=== PATIENT | female | born 1990 | race American Indian/Alaskan Native ===

== ENCOUNTER 2020-05-18 01:55 | Emergency (ER) | payer SELFPAY ==
--- NOTE | 2020-05-18 02:47 | Emergency Department Report ---
ED Psych HPI - General Chief Complaint: Psych Stated Complaint: FB/IN VAGINA Time Seen by Provider: 05/18/20 02:28 Source: patient Mode of arrival: Ambulatory Limitations: Altered Mental Status - History of Present Illness Initial Comments: Patient is a 29-year-old female that presents emergency room with complaints of hallucinations and a tampon stuck in her vagina for 1 month. Patient denies abdominal pain. Patient denies vaginal pain. Patient states she is having auditory and visual hallucinations. Patient states she is been using drugs for the last 2 days. Patient states tonight somebody gave her a new drug called a bee. Patient states her hallucinations worsened. Patient states she is not sure how long hallucination been going on. Patient denies suicidal homicidal ideations. Patient denies fever and chills. Patient states that the tampon is been stuck in her vagina for a month and that she just forgot to take it out now she cannot reach it. Patient states that she has made multiple attempts to get it out. Patient states she is still on her period for 1 month. Patient denies pain. Patient denies discharge. Patient de nies foul odor from the vagina. MD Complaint: altered mental status -: Sudden Associated Psychiatric Symptoms: racing thoughts, auditory hallucinations, visual hallucinations History of same: No Quality: constant Improves With: none Worsens With: none Context: recent drug abuse, significant life stressor Associated Symptoms: other. denies: confusion, headache - Related Data Previous Rx's Medication Instructions Recorded Last Taken Type Ferrous Gluconate [Fergon 325 MG 325 mg PO TID #30 tablet 05/18/20 Unknown Rx tab] Allergies Allergy/AdvReac Type Severity Reaction Status Date / Time No Known Allergies Allergy Unverified 05/18/20 03:28 ED Review of Systems ROS: Stated complaint: FB/IN VAGINA Other details as noted in HPI Constitutional: denies: chills, fever Eyes: denies: eye pain, eye discharge, vision change ENT: denies: ear pain, throat pain Respiratory: denies: cough, shortness of breath, wheezing Cardiovascular: denies: chest pain, palpitations Endocrine: no symptoms reported Gastrointestinal: denies: abdominal pain, nausea, diarrhea Genitourinary: denies: urgency, dysuria, discharge Musculoskeletal: denies: back pain, joint swelling, arthralgia Skin: denies: rash, lesions Neurological: denies: headache, weakness, paresthesias Psychiatric: auditory hallucinations, visual hallucinations. denies: anxiety, depression Hematological/Lymphatic: denies: easy bleeding, easy bruising ED Past Medical Hx - Past Medical History Previous Medical History?: No Additional medical history: UNABLE TO ASSESS - Surgical History Past Surgical History?: No Additional Surgical History: UNABLE TO ASSESS - Family History Family history: no significant - Social History Smoking Status: Current Every Day Smoker Substance Use Type: Alcohol - Medications Home Medications: Home Medications Medication Instructions Recorded Confirmed Last Taken Type Ferrous Gluconate [Fergon 325 MG 325 mg PO TID #30 tablet 05/18/20 Unknown Rx tab] ED Physical Exam - General Limitations: No Limitations General appearance: alert, in no apparent distress - Head Head exam: Present: atraumatic, normocephalic - Eye Eye exam: Present: normal appearance - ENT ENT exam: Present: mucous membranes moist - Neck Neck exam: Present: normal inspection - Respiratory Respiratory exam: Present: normal lung sounds bilaterally. Absent: respiratory distress - Cardiovascular Cardiovascular Exam: Present: regular rate, normal rhythm. Absent: systolic murmur, diastolic murmur, rubs, gallop - GI/Abdominal GI/Abdominal exam: Present: soft, normal bowel sounds - External exam: Present: normal external exam Speculum exam: Present: normal speculum exam Bi-manual exam: Present: normal bi-manual exam, other (Pelvic exam done with nurse Barragan in the room at all times.) - Extremities Exam Extremities exam: Present: normal inspection - Back Exam Back exam: Present: normal inspection - Neurological Exam Neurological exam: Present: alert, oriented X3 - Psychiatric Psychiatric exam: Present: agitated - Expanded Psychiatric Exam Expanded Focused psych exam: Present: pressured speech, internal stimuli, delusional, paranoid, restlessness - Skin Skin exam: Present: warm, dry, intact, normal color. Absent: rash ED Course Vital Signs 05/18/20 05/18/20 02:10 10:18 Temperature 98 F 98.3 F Pulse Rate 76 Respiratory 18 16 Rate Blood Pressure 136/87 Blood Pressure 112/56 [Left] O2 Sat by Pulse 98 99 Oximetry - Reevaluation(s) Reevaluation #1: Initial evaluation done. Patient evaluated with a nurse trudy, Cordelia LAIRD. Patient will have a pelvic exam. Patient is agreed to a pelvic exam. 05/18/20 02:28 Reevaluation #2: During the pelvic exam, the patient repeatedly grabbed the speculum out of my hand and stated that we are trying to implant something in her body. Patient also stated that many of people have stopped transmitting it devices into her vagina and have done her wrong. Patient states that the devices are there to monitor her activities. Patient currently on her period. Pelvic exam done and no foreign body noted in the vaginal vault. Patient became increasingly paranoid and delusional. Patient also hyperverbal and increasing agitation. Patient having erratic behaviors. Patient placed on a 1013. Patient will be given Geodon and Ativan. 05/18/20 02:54 Reevaluation #3: Patient given Geodon and Ativan and the patient is beginning to calm down. 05/18/20 03:16 Reevaluation #4: Patient is medically cleared. Patient will remain in the ER as an ER hold. Patient is already on a 1013. Patient is final disposition will come from our psychiatry team. 05/18/20 05:13 ED Medical Decision Making - Lab Data Result diagrams: 05/18/20 11:42 05/18/20 03:05 - Medical Decision Making Patient is a 29-year-old female that presents emergency room with complaints of hallucinations and a tampon being stuck in her vagina. Patient that she had a tampon in her vagina for a month. A pelvic exam was performed in the ER with a female nurse utility tech. The pelvic exam did not reveal a tampon within the vaginal vault. Patient became agitated and paranoid and delusional. Patient placed on a 1013 and given Geodon and Ativan. Patient responded well to treatment. Patient had a mental health consult placed in the system. Patient will remain in the ER as a 1013 and an ER hold until the patient is cleared from a psychiatric standpoint. Patient's final disposition will come from our ps hiatric and mental health team. Patient's labs are essentially unremarkable except for anemia. - Differential Diagnosis Acute psychosis, paranoia and delusions Critical care attestation.: If time is entered above; I have spent that time in minutes in the direct care of this critically ill patient, excluding procedure time. ED Disposition Clinical Impression: Acute psychosis, Delusions, Paranoia Disposition: [id number] TO HOME OR SELFCARE Is pt being admited?: No Does the pt Need Aspirin: No Condition: Stable Instructions: Dysfunctional Uterine Bleeding (ED) Additional Instructions: CRISIS RESOURCES [place] Crisis Line: Suicide Prevention Line: Crisis Text Line: Text START to [phone] Emergency: 911 Prescriptions: Ferrous Gluconate [Fergon 325 MG tab] 325 mg PO TID #30 tablet Referrals: [facility] [Provider Group] - 3-5 Days PRIMARY CARE, [Primary Care Provider] - 3-5 Days Time of Disposition: 05:13
[2020-05-18] MEDS ORDERED: ZIPRASIDONE MESYLATE 20 MG VIAL IM ONE ×2 (02:54→02:56)
[2020-05-18] MEDS ORDERED: WATER FOR INJ Sterile (PF) 10 ML ONE (02:56)
[2020-05-18] MEDS ORDERED: LORazepam 2 MG/ML VIAL ONE (02:57)
[2020-05-18] MEDS ORDERED: LORazepam 2 MG/ML VIAL IM ONE (03:00)
[2020-05-18 03:25] LABS: Bilirubin,Urine NEG (Negative); Blood,Urine LG (Negative); Color,Urine Colorless (Yellow); Protein,Urine <15 mg/dL mg/dL (Negative); Urobilinogen,Urine < 2.0 mg/dL (<2.0); WBC,Urine < 1.0 /HPF (0.0-6.0)
[2020-05-18 03:28] LABS: Basophils % (Auto) 0.2 % (0.0-1.8); Eosinophils % (Auto) 0.1 % (0.0-4.3); Hematocrit 24.7 % (30.3-42.9); Hemoglobin 7.7 gm/dl (10.1-14.3); Lymphocytes % (Auto) 15.7 % (13.4-35.0); Mean Corpuscular HGB Conc 31 % (30-34); Mean Corpuscular Volume 73 fl (79-97); Monocytes % (Auto) 7.9 % (0.0-7.3); Platelet Count 377 K/mm3 (140-440); Red Cell Distribution Width 18.9 % (13.2-15.2)
[2020-05-18 03:31] LABS: Amphetamine Screen,Urine PRESUMPTIVE NEGATIVE; Benzodiazepines Screen,Urine PRESUMPTIVE NEGATIVE; Cannabinoid Screen,Urine PRESUMPTIVE NEGATIVE; Cocaine Screen,Urine PRESUMPTIVE NEGATIVE; Methadone Screen,Urine PRESUMPTIVE NEGATIVE; Opiate Screen,Urine PRESUMPTIVE NEGATIVE
[2020-05-18 03:34] LABS: BUN/Creatinine Ratio 10; Blood Urea Nitrogen 8 mg/dL (7-17); Calcium 9.2 mg/dL (8.4-10.2); Hemolysis Index 0
[2020-05-18 10:20] VITALS: BP 112/56
[2020-05-18] MEDS ORDERED: POTASSIUM CHLORIDE ER 20 MEQ TAB PO ONE (11:31)
[2020-05-18 11:54] LABS: Basophils % (Auto) 0.4 % (0.0-1.8); Eosinophils % (Auto) 0.3 % (0.0-4.3); Hematocrit 26.5 % (30.3-42.9); Hemoglobin 8.2 gm/dl (10.1-14.3); Lymphocytes # (Auto) 1.6 K/mm3 (1.2-5.4); Lymphocytes % (Auto) 18.3 % (13.4-35.0); Mean Corpuscular HGB Conc 31 % (30-34); Mean Corpuscular Volume 74 fl (79-97); Monocytes # (Auto) 0.6 K/mm3 (0.0-0.8); Platelet Count 340 K/mm3 (140-440); Red Cell Distribution Width 19.3 % (13.2-15.2)
== END 2020-05-18 15:34 | disposition home or self-care (01) ==
LOC: ED 01:55
DX: F22 Delusional disorders (principal); F23 Brief psychotic disorder; F17.200 Nicotine dependence, unspecified, uncomplicated; Z79.899 Other long term (current) drug therapy
CPT/HCPCS: 36415; 80048; 80307; 81001; 84703; 85025; 96372; 99284; J2060; J3486; 80320; G0480